=== PATIENT | female | born 1995 | race Caucasian/White ===

== ENCOUNTER 2017-06-17 18:16 | Emergency (ER) | payer OTHER ==
[2017-06-17 18:33] VITALS: RESP 16
[2017-06-17] MEDS ORDERED: NS 1,000 ML IV ONE ×2 (19:11→21:31)
[2017-06-17] MEDS ORDERED: KETOROLAC 15 MG/1 ML SDV IVP ONE (19:12)
[2017-06-17] MEDS ORDERED: ONDANSETRON 4 MG/2 ML VIAL IVP ONE ×2 (19:12→21:21)
--- NOTE | 2017-06-17 19:16 | EDPHY ---
H & P Stated Complaint: nausea, fever, cough, body aches, abd pain since this am Source: Patient Exam Limitations: No limitations - Personal History Current Tetanus Diphtheria and Acellular Pertussis (TDAP): Yes - Medical/Surgical History Hx Asthma: No Hx Chronic Respiratory Disease: No Hx Diabetes: No Hx Cardiac Disease: No Hx Renal Disease: No Hx Cirrhosis: No Hx Alcoholism: No Hx HIV/AIDS: No Hx Splenectomy or Spleen Trauma: No Other PMH: med hx-ADHD. surg-Tonsils - Family History Significant Family History: No pertinent family hx - Social History Smoking Status: Never smoked Alcohol Use: Rarely Drug Use: None Time Seen by Provider: 06/17/17 18:34 HPI/ROS: This patient was driven in by private vehicle by her parents with abdominal pain and vomiting. She reports onset at 6:00 a.m. of concurrent nausea, vomiting and crampy abdominal pain that is initially generalized location achy in nature now slightly more sharp in nature and more prominent her lower belly. The pain worsens with bumps in the road with movement. She has never had this pain before which is currently 7/10 intensity. She has ongoing nausea. She has associated low-grade fevers today. ROS: Constitutional: She reports mild fatigue. HEENT: Patient's recent history is notable for bronchitis and sinusitis. She was seen by ENT physician on Saturday, 3 days prior to arrival started on Zithromax. She took 2 days of Zithromax fitness today's doses due to vomiting. Pulmonary: Mild cough. She is also prescribed albuterol inhaler for bronchitis. She reports her dry cough is significantly improved symptoms started 2 weeks prior to her arrival Cardiovascular: No complaints GI: No hemoptysis. Loose stool this morning x1. No abdominal bloating. : Last menstrual. Was last week-normal timing. No vaginal discharge or other symptoms. No dysuria. Musculoskeletal: No back pain Endocrine: No complaints Complete review of symptoms otherwise negative. (Oscar Vora) - Medical/Surgical History PMH: Otherwise recent history as per [id number] sinusitis bronchitis. Otherwise healthy (Oscar Vora) - Physical Exam Exam: General Appearance: Alert, no distress. Eyes: Pupils equal and round no pallor or injection. ENT, Mouth: Mucous membranes moist. Respiratory: There are no retractions, lungs are clear to auscultation. Cardiovascular: Regular rate and rhythm. Gastrointestinal: Hypoactive bowel sounds. Patient has mild to moderate right lower quadrant and suprapubic tenderness with no guarding or rebound. No organomegaly. Back: No CVA tenderness Neurological: GCS of 15 Skin: Warm and dry, no rashes. Musculoskeletal: Neck is supple nontender. Extremities are symmetrical, full range of motion. Psychiatric: Mood and affect normal DIFFERENTIAL DIAGNOSIS: After history and physical exam differential diagnosis was considered for influenza, appendicitis, cystitis, pyelonephritis, , ectopic (Oscar Vora) Constitutional: Initial Vital Signs Temperature (C) 37.4 C 06/17/17 18:31 Heart Rate 95 06/17/17 18:31 Respiratory Rate 16 06/17/17 18:31 Blood Pressure 110/74 06/17/17 18:31 O2 Sat (%) 97 06/17/17 18:31 O2 Delivery Mode Room Air Allergies/Adverse Reactions: No Known Allergies Allergy (Verified 05/17/16 19:06) Home Medications: Medication Instructions Recorded Intunez 01/12/13 Methylphenidate HCl [Ritalin 20mg 01/12/13 (RX)] Latuda 06/29/16 Ondansetron Odt [Zofran Odt 4 mg 4 mg PO Q6 PRN #8 tab 06/17/17 (RX)] Medical Decision Making - Diagnostics Imaging Results: Imaging Impressions Abdomen Ultrasound 06/17/17 19:45 Impression: Appendix not identified. Findings and recommendations discussed with Emergency Department physician, Melinda Quintero MD at 21:09 hour, 06/17/2017. Final report concurs with initial preliminary interpretation. Abdomen CT 06/17/17 21:30 Impression: 1. Mild constipation. 2. No CT evidence of appendicitis, abscess or bowel obstruction. Findings and recommendations discussed with Emergency Department physician, Melinda Quintero MD at 22:12 hour, 06/17/2017. Final report concurs with initial preliminary interpretation. ED Course/Re-evaluation: IV normal saline bolus Zofran and Toradol IV (Oscar Vora) I assumed care from this of this patient from Dr. Vora at 7:00 p.m.. We have been awaiting the results of her influenza test which was negative. On my examination the patient looks uncomfortable. She reports ongoing nausea as well as abdominal discomfort especially in the lower abdomen. She has had no diarrhea although she had 1 loose stool this morning. No vomiting. On examination the patient has a soft abdomen. Tenderness in the right and left lower quadrants, worse on the right. No distension. No flank pain. IV was placed in the patient received a L of normal saline. Labs demonstrate normal white count 8 with a slight left shift. Patient is not . Chemistries are normal. Urinalysis does not demonstrate infection. Patient underwent ultrasound to evaluate for appendicitis. Unfortunately, the appendix was not able to be visualized. On return from ultrasound patient was reexamined. She reports increased nausea. She has continued to have abdominal discomfort, right and left lower quadrants. CT scan was ordered. CT scan demonstrates a normal appendix. Patient does have some constipation. I discussed results of the CT scan with the patient and her mother. At this point the patient reports her pain has improved been improved following the Phenergan. Her nausea was improved as well. She has received 2 L of normal saline, she has not developed a significant fever, vital signs are reassuring. Plan for discharge with supportive care. She understands the importance of using Phenergan or Zofran as needed for nausea, getting plenty of rest, drinking plenty of fluid, and returning if her symptoms are worsening. (Melinda Quintero) Differential Diagnosis: The differential diagnosis for the patient's abdominal pain was considered including but not limited to ovarian cyst, pelvic inflammatory disease, ovarian torsion, urinary tract infection, related complications, and appendicitis. (Melinda Quintero) Care Turn Over: I spoke with Melinda Quintero, [facility] emergency physician at 7:20 p.m. regarding this patient's presentation. She will follow up with pending studies and disposition. (Oscar Vora) - Data Points Laboratory Results: Laboratory Results 06/17/17 19:40 06/17/17 19:40 06/17/17 06/17/17 06/17/17 21:10 19:40 19:40 WBC RBC Hgb Hct MCV MCH MCHC RDW Plt Count MPV Neut % (Auto) Lymph % (Auto) [place] % (Auto) Eos % (Auto) Baso % (Auto) Nucleat RBC Rel Count Absolute Neuts (auto) Absolute Lymphs (auto) Absolute Monos (auto) Absolute Eos (auto) Absolute Basos (auto) Absolute Nucleated RBC Immature Gran % Immature Gran # Sodium 145 mEq/L H mEq/L (134-144) Potassium 3.6 mEq/L mEq/L (3.5-5.2) Chloride 99 mEq/L mEq/L (97-110) Carbon Dioxide 26 mEq/l mEq/l (22-31) Anion Gap 20 mEq/L H mEq/L (8-16) BUN 18 mg/dL mg/dL (7-23) Creatinine 0.8 mg/dL mg/dL (0.6-1.0) Estimated GFR > 60 Glucose 90 mg/dL mg/dL (70-100) Calcium 10.2 mg/dL mg/dL (8.5-10.4) Beta HCG, Qual NEGATIVE Urine Color DARK YELLOW Urine Appearance CLEAR Urine pH 6.0 (5.0-7.5) Ur Specific [place] 1.020 (1.002-1.030) Urine Protein NEGATIVE (NEGATIVE) Urine Ketones TRACE H (NEGATIVE) Urine Blood NEGATIVE (NEGATIVE) Urine Nitrate NEGATIVE (NEGATIVE) Urine Bilirubin NEGATIVE (NEGATIVE) Urine Urobilinogen 0.2 EU EU (0.2-1.0) Ur Leukocyte Esterase NEGATIVE (NEGATIVE) Urine Glucose NEGATIVE (NEGATIVE) Influenza A,B Rapid 06/17/17 06/17/17 19:40 18:45 WBC 8.69 10^3/uL 10^3/uL (3.80-9.50) RBC 5.69 10^6/uL H 10^6/uL (4.18-5.33) Hgb 16.4 g/dL H g/dL (12.6-16.3) Hct 47.0 % % (38.0-47.0) MCV 82.6 fL fL (81.5-99.8) MCH 28.8 pg pg (27.9-34.1) MCHC 34.9 g/dL g/dL (32.4-36.7) RDW 11.8 % % (11.5-15.2) Plt Count 254 10^3/uL 10^3/uL (150-400) MPV 9.0 fL fL (8.7-11.7) Neut % (Auto) 87.0 % H % (39.3-74.2) Lymph % (Auto) 7.6 % L % (15.0-45.0) [place] % (Auto) 4.9 % % (4.5-13.0) Eos % (Auto) 0.1 % L % (0.6-7.6) Baso % (Auto) 0.2 % L % (0.3-1.7) Nucleat RBC Rel Count 0.0 % % (0.0-0.2) Absolute Neuts (auto) 7.55 10^3/uL H 10^3/uL (1.70-6.50) Absolute Lymphs (auto) 0.66 10^3/uL L 10^3/uL (1.00-3.00) Absolute Monos (auto) 0.43 10^3/uL 10^3/uL (0.30-0.80) Absolute Eos (auto) 0.01 10^3/uL L 10^3/uL (0.03-0.40) Absolute Basos (auto) 0.02 10^3/uL 10^3/uL (0.02-0.10) Absolute Nucleated RBC 0.00 10^3/uL 10^3/uL (0-0.01) Immature Gran % 0.2 % % (0.0-1.1) Immature Gran # 0.02 10^3/uL 10^3/uL (0.00-0.10) Sodium Potassium Chloride Carbon Dioxide Anion Gap BUN Creatinine Estimated GFR Glucose Calcium Beta HCG, Qual Urine Color Urine Appearance Urine pH Ur Specific [place] Urine Protein Urine Ketones Urine Blood Urine Nitrate Urine Bilirubin Urine Urobilinogen Ur Leukocyte Esterase Urine Glucose Influenza A,B Rapid NEGATIVE FOR FLU (NEGATIVE) Medications Given: Discontinued Medications Fentanyl (Sublimaze) 50 mcg IVP EDNOW ONE Stop: 06/17/17 21:33 Last Admin: 06/17/17 21:43 Dose: 50 mcg Sodium Chloride (Ns) 1,000 mls @ 0 mls/hr IV EDNOW ONE; Wide Open PRN Reason: Protocol Stop: 06/17/17 19:12 Last Admin: 06/17/17 19:32 Dose: 1,000 mls Sodium Chloride (Ns) 1,000 mls @ 0 mls/hr IV ONCE ONE; Wide Open PRN Reason: Protocol Stop: 06/17/17 21:32 Last Admin: 06/17/17 21:45 Dose: 1,000 mls Ketorolac Tromethamine (Toradol) 15 mg IVP EDNOW ONE Stop: 06/17/17 19:13 Last Admin: 06/17/17 19:33 Dose: 15 mg Ondansetron HCl (Zofran) 4 mg IVP EDNOW ONE Stop: 06/17/17 19:13 Last Admin: 06/17/17 19:35 Dose: 4 mg Ondansetron HCl (Zofran) 4 mg IVP EDNOW ONE Stop: 06/17/17 21:22 Last Admin: 06/17/17 21:30 Dose: 4 mg Departure - Departure Disposition: Home, Routine, Self-Care Clinical Impression: Nausea Abdominal pain Qualifiers: Abdominal location: lower abdomen, unspecified Qualified Code(s): R10.30 - Lower abdominal pain, unspecified Condition: Good Instructions: Acute Abdominal Pain (ED), Acute Nausea and Vomiting (ED) Additional Instructions: There has been no clear cause of your abdominal pain and nausea identified. Does not appear to be related to appendicitis, or gastroenteritis. This does not appear to be related to influenza. You may have nonspecific viral syndrome resulting in low-grade fever, abdominal discomfort, and nausea. Mainstay of therapy is to stay well hydrated with small, frequent sips of fluid. You may use Zofran as needed for ongoing nausea vomiting. You have also been given a prepack of Phenergan tablets. This is also anti nausea medicine. It can make you sleepy. If the symptoms are not improving over the next 24-36 hours, or if they are worsening, please return to the emergency department or seek care urgently. If you developed a high fever, recurrent vomiting, severe pain, rash, blood in the stools, or blood in the vomit, return immediately. Referrals: Zara Biswas PA [Primary Care Provider] - As per Instructions
[2017-06-17 19:47] LABS: % IMMATURE GRANULYOCYTES 0.2 % (0.0-1.1); ABSOLUTE IMMATURE GRANULOCYTES 0.02 10^3/uL (0.00-0.10); ADD DIFF? NO; ADD MORPH? NO; ADD SCAN? NO; ATYPICAL LYMPHOCYTE FLAG 10 (0-99); FRAGMENT RBC FLAG 0 (0-99); HEMOGLOBIN 16.4 g/dL (12.6-16.3); LEFT SHIFT FLG 0 (0-99); LIPEMIA HEMOLYSIS FLAG 90 (0-99); MEAN CELL HEMOGLOBIN 28.8 pg (27.9-34.1); MEAN CELL HEMOGLOBIN CONCENTR. 34.9 g/dL (32.4-36.7); MEAN CELL VOLUME 82.6 fL (81.5-99.8); PLATELET CLUMPS FLAG 0 (0-99); PLATELET COUNT 254 10^3/uL (150-400); RED BLOOD CELL COUNT 5.69 10^6/uL (4.18-5.33); RED CELL DISTRIBUTION WIDTH 11.8 % (11.5-15.2)
[2017-06-17 20:06] LABS: ANION GAP 20 mEq/L (8-16); CALCIUM 10.2 mg/dL (8.5-10.4); CARBON DIOXIDE 26 mEq/l (22-31); CHLORIDE 99 mEq/L (97-110); CREATININE 0.8 mg/dL (0.6-1.0); GLOMERULAR FILTRATION RATE > 60; GLUCOSE 90 mg/dL (70-100); POTASSIUM 3.6 mEq/L (3.5-5.2); SODIUM 145 mEq/L (134-144)
[2017-06-17 20:30] VITALS: PULSE 77
[2017-06-17 21:19] LABS: COLOR DARK YELLOW; LEUKOCYTE ESTERASE,URINE NEGATIVE (NEGATIVE); NITRITE,URINE NEGATIVE (NEGATIVE)
[2017-06-17] MEDS ORDERED: fentaNYL 100 MCG/2 ML INJ IVP ONE (21:32)
[2017-06-17] MEDS ORDERED: fentaNYL 100 MCG/2 ML INJ ONE (21:38)
[2017-06-17] MEDS ORDERED: IOPAMIDOL (ISOVUE-300) 100 ML BTL ONE (21:39)
[2017-06-17 22:15] VITALS: BP 94/52; TEMP 99.1; O2SAT 95
[2017-06-17] MEDS ORDERED: PROMETHAZINE 25 MG PREPACK #4 BTL TAKEHOME ONE (22:22)
[2017-06-17] MEDS ORDERED: ONDANSETRON 4MG PREPACK#2 BTL TAKEHOME ONE (22:22)
[2017-06-17 22:54] LABS: ALBUMIN 4.7 g/dL (3.5-5.0); BILIRUBIN-CONJUGATED 0.3 mg/dL (0.0-0.5); BILIRUBIN-UNCONJUGATED 0.7 mg/dL (0.0-1.1); TOTAL PROTEIN 8.6 g/dL (6.3-8.2)
== END 2017-06-17 22:42 | disposition home or self-care (01) ==
LOC: CED 18:16
DX: R10.30 Lower abdominal pain, unspecified (principal); R11.0 Nausea; E86.9 Volume depletion, unspecified
CPT/HCPCS: 74177-PO; 76705-PO; 80048-PO; 80076-PO; 81003-PO; 83690-PO; 84703-PO; 85025-PO; 87400-PO; 96374; J1885; J2405; J3010; Q9967

== ENCOUNTER 2019-01-14 14:55 | Emergency (ER) | payer OTHER | END 2019-01-14 15:30 | disposition home or self-care (01) | LOC: CED 14:55 ==